=== PATIENT | male | born 1945 | race Caucasian/White ===

== ENCOUNTER 2021-01-02 23:25 | Emergency (ER) | payer MEDICARE, OTHER, SELFPAY ==
[2021-01-02 23:47] VITALS: BP 218/108; PULSE 72; RESP 14; TEMP 36.4; O2SAT 100
[2021-01-03 02:59] VITALS: BP 210/110; PULSE 66; RESP 16; O2SAT 97
--- NOTE | 2021-01-03 03:34 | ED.WOUNDLAC ---
HPI - Wound/Laceration General Chief Complaint: Wound/Laceration Stated Complaint: right ear laceration Time Seen by Provider: 01/03/21 02:54 History of Present Illness HPI narrative: Patient is a 75-year-old male who presents ER with laceration to the right temporal region. Reports he was walking down some steps at the bottom when he tripped and fell forward and struck his head on a PNO. No loss of consciousness. Does not take any blood thinners. No change in vision or hearing. No numbness or tingling to the arms or legs. No neck pain. Incidentally patient's blood pressure found to be elevated which is a for him. Tetanus updated 2 years ago. Patient reports normal alignment of teeth with bite. Review of Systems Constitutional: Constitutional: Denies chills and Denies fever(s) Eyes: Eyes: Denies change in vision and Denies photophobia Integumentary/Breasts: Skin/Breast: Denies pruritus and Denies erythema Comments: Skin laceration Neurologic: Denies headache(s), Denies focal weakness and Denies numbness PMFSH Past Medical History Medical History (Updated 01/03/21 @ 03:39 by Seferino Beck MD) Hypertension Surgical History Surgical History (Updated 01/03/21 @ 03:36 by Seferino Beck MD) No pertinent past surgical history Social History Social History (Updated 01/03/21 @ 03:37 by Seferino Beck MD) Social History: Retired physicians assistant manager quality management. . Exam Narrative: GENERAL: Well-appearing, well-nourished, and in no acute distress. HEAD: Normocephalic, 5 cm laceration right temporal mandibular region. EYES: PERRL and EOMI. ENT: Mucous membranes moist. EXTREMITIES: Normal range of motion. No edema. NEURO: Alert and oriented x3. PSYCH: Normal mood and affect. Course Course Emergency Course: Wound repaired. Blood pressure coming down to the 190s. Patient will follow his blood pressure and will follow up with his PCP. He is scheduled leave [facility] in 2 days. Vital Signs Vital signs: Vital Signs Temperature 97.6 F 01/02/21 23:47 Pulse Rate 72 01/02/21 23:47 Respiratory Rate 14 01/02/21 23:47 Blood Pressure 218/108 H 10/01/21 23:47 Pulse Oximetry 100 10/01/21 23:47 Temperature 97.6 F 01/02/21 23:47 Pulse Rate 66 01/03/21 02:59 Respiratory Rate 16 01/03/21 02:59 Blood Pressure 210/110 H 01/03/21 02:59 Pulse Oximetry 97 01/03/21 02:59 Procedures Laceration Laceration 1: Date: 01/03/21 Time: 03:25 Site: face Size (cm): 2.5 Description: linear Depth: simple, single layer Local Anesthetic: lidocaine 1% and with epi Amount of anesthesia used (mL): 2 Pre-repair: wound explored and irrigated ====== Skin Level ====== Skin layer closed with: prolene Size (cm): 5-0 Number of sutures: 6 Technique: simple, interrupted ====== Subcutaneous Layer ====== ====== Muscle Layer ====== ====== Tendon Layer ====== Discharge Plan Discharge Clinical Impression: Laceration Patient Disposition: Home, Self-Care Condition: Stable Instructions: Laceration (ED) Additional Instructions: Remove your sutures in 7 days. Return to the ER if your wound is red and hot, it is draining pus, you develop fever over 100.4 ?F, or you develop new headache or change in vision or numbness/tingling in arm or leg. Follow-up/Referrals: PHYSICIAN NOT ON STAFF,NONSTAFF [Primary Care Provider] - 1 Week
[2021-01-03 03:37] VITALS: BP 190/103; PULSE 58; RESP 18; O2SAT 97
== END 2021-01-03 04:08 | disposition home or self-care (01) ==
LOC: ANHED 01-03 03:57
PROVIDERS: Emergency Provider Emergency Medicine
DX: S01.81XA Laceration without foreign body of other part of head, initial encounter (principal); I10 Essential (primary) hypertension; W10.9XXA Fall (on) (from) unspecified stairs and steps, initial encounter
CPT/HCPCS: 12011; 99282